=== PATIENT | female | born 1955 | race Caucasian/White ===

== ENCOUNTER → 2020-06-16 | Outpatient (CLI) | payer BC ==
--- NOTE | 2020-06-16 13:38 | Diagnostic Imaging Report ---
CT Lung Screening INDICATION: [id number] smoking history for low-dose baseline screening. TECHNIQUE: Noncontrast, low-dose CT imaging performed according to the lung cancer screening protocol. Auto Exposure Controls were utilize during the CT exam to meet ALARA standards for radiation dose reduction. COMPARISON: Baseline. FINDINGS: Seen best on axial image 144, series 2 and coronal image 62 series 602 is a juxtapleural subcentimeter nodule in the left lower lobe measuring a long axis 7.7 mm x width of 4 mm. It showed no definite calcifications as borders are well-defined and had no peripheral groundglass density. This is favored to be a benign nodule given its morphology, density, and juxtapleural position but given I have no priors for its comparison, a six-month follow-up low-dose CT chest CT recommended. No other lung mass and no spiculated lesion. No evidence for adenopathy. The thoracic aorta is normal in caliber. No effusion, pneumothorax or evidence for pneumonia. Visualized upper abdomen showed previous cholecystectomy but no acute finding. IMPRESSION: Likely benign sub-centimeter subpleural nodule in left lower lobe. Follow-up exam in six months' time recommended. LUNG-RADS CATEGORY: Category 3. MODIFIER: None. OTHER SIGNIFICANT FINDINGS: None. Dictated by: Dictated on workstation # [id number]
== END ==
LOC: RAD 12:45
PROVIDERS: ATTEND Family Medicine
DX: R91.1 Solitary pulmonary nodule (principal); F17.210 Nicotine dependence, cigarettes, uncomplicated
CPT/HCPCS: 71271

== ENCOUNTER → 2020-12-15 | Outpatient (CLI) | payer BC ==
--- NOTE | 2020-12-15 12:28 | Diagnostic Imaging Report ---
CT Lung Screening INDICATION:40 pack year smoking history, current smoker, for 6 month follow-up TECHNIQUE: Noncontrast, low-dose CT imaging performed according to the lung cancer screening protocol. Auto Exposure Controls were utilize during the CT exam to meet ALARA standards for radiation dose reduction. COMPARISON:06/16/2020 FINDINGS:A stable somewhat elongated juxtapleural nodule in the left lower lobe measures about 7 mm and given stability consistent with benign etiology. Unchanged from prior is a tiny 6 mm nodule in the right upper lobe previously it was mistaken for a vascular structure. This also stable and benign. No new dominant or suspicious lung mass. No findings suggestive of active lung cancer. No thoracic adenopathy. The atherosclerotic aorta is nonaneurysmal. There is no pleural or pericardial effusion. The visualized upper abdomen showed no acute or suspicious finding. IMPRESSION: Stable benign subcentimeter nodules. This patient can be returned to routine annual screening next due in 12 months time. LUNG-RADS CATEGORY:Category 2 benign findings as described MODIFIER:None OTHER SIGNIFICANT FINDINGS:None Dictated by: Dictated on workstation # [id number]
== END ==
LOC: RAD 11:33
PROVIDERS: ATTEND Family Medicine
DX: Z12.2 Encounter for screening for malignant neoplasm of respiratory organs (principal); R91.8 Other nonspecific abnormal finding of lung field; F17.210 Nicotine dependence, cigarettes, uncomplicated
CPT/HCPCS: 71271

== ENCOUNTER → 2022-02-03 | Outpatient (CLI) | payer MEDICARE, BC ==
--- NOTE | 2022-02-03 16:41 | Diagnostic Imaging Report ---
EXAMINATION: CT chest without contrast (lung screening). TECHNIQUE: Multiple contiguous axial images were obtained through the chest without the use of intravenous contrast according to lung cancer screening protocol. All CT scans use one or more of the following dose optimizing techniques: automated exposure control, MA and/or KvP adjustment based on patient size and exam type or iterative reconstruction. HISTORY: 30 pack year history of smoking. COMPARISON: 12/15/2020. FINDINGS: Thyroid: The thyroid is normal. Mediastinum: Heart size is normal without significant pericardial effusion. Calcifications of the aorta and coronary vessels. Thoracic aorta is normal in caliber. No suspicious lymphadenopathy. Lungs and airways: The lungs are clear without consolidation, pleural effusion or pneumothorax. Stable bilateral pulmonary nodules measuring up to 0.8 cm the right upper lobe and 0.8 cm in the left lower lobe. No new suspicious pulmonary lesion. There is a calcified granuloma within the left lung. The airways are normal. Upper abdomen: The subphrenic structures are normal. Musculoskeletal: Degenerative changes of the spine without suspicious osseous lesion or compression fracture. IMPRESSION: No new suspicious pulmonary nodules. Stable bilateral pulmonary nodules measuring up to 0.8 cm. Recommend continued annual low-dose CT screening. LUNG-RADS CATEGORY: 2 MODIFIER: None Dictated by: Dictated on workstation # [id number]
== END ==
LOC: RAD 11:21
PROVIDERS: ATTEND Nurse Practitioner
DX: Z12.2 Encounter for screening for malignant neoplasm of respiratory organs (principal); R91.8 Other nonspecific abnormal finding of lung field; F17.210 Nicotine dependence, cigarettes, uncomplicated
CPT/HCPCS: 71271

== ENCOUNTER 2022-10-25 05:42 | Outpatient (CLI) | payer MEDICARE, BC ==
[~2022-10-25] VITALS: Ht 162.6 cm; Wt 95.5 kg
[2022-10-25] MEDS ORDERED: ACET-3075 PO (16:40)
[2022-10-25] MEDS ORDERED: ZOLP10TA PO (16:40)
[2022-10-25] MEDS ORDERED: ERGO400C PO (16:40)
[2022-10-25] MEDS ORDERED: FEXO180T84 PO (16:40)
[2022-10-25] MEDS ORDERED: MONT-40 PO (16:40)
[2022-10-25] MEDS ORDERED: MAGN250C PO (16:40)
[2022-10-25] MEDS ORDERED: ACET-2267 PO (16:40)
[2022-10-25] MEDS ORDERED: LISI1TAB48 PO (16:40)
[2022-10-25] MEDS ORDERED: ASPI325T32 PO (16:40)
[2022-10-25] MEDS ORDERED: ROPI1TAB PO (16:40)
[2022-10-25] MEDS ORDERED: OMEP20CA18 PO (16:40)
[2022-10-25] MEDS ORDERED: ATOR10TA66 PO (16:40)
== END 2022-10-25 16:45 | disposition home or self-care (01) ==
LOC: PREOP 05:42
PROVIDERS: ATTEND Specialist
DX: Z01.818 Encounter for other preprocedural examination (principal)

== ENCOUNTER 2022-10-28 10:33 | Day surgery (SDC) | payer MEDICARE, BC ==
[~2022-10-28] VITALS: Ht 162.6 cm; Wt 95.5 kg
[~2022-10-28 10:33] MED LIST: ACET-2267 PO; ACET-3075 PO; ASPI325T32 PO; ATOR10TA66 PO; ERGO400C PO; FEXO180T84 PO; LISI1TAB48 PO; MAGN250C PO; MONT-40 PO; OMEP20CA18 PO; ROPI1TAB PO; ZOLP10TA PO
[2022-10-28] MEDS: TETRACAINE 0.5% OPHTH SOLN 4 ML BTL (SINGLE DOSE ONLY) OD SCH ×4 (11:41→12:00)
[2022-10-28 11:42] VITALS: BP 124/110
[2022-10-28] MEDS ORDERED: MOXIFLOXACIN OPHTH SOLN 5 MG/ML 0.3 ML SYRINGE OP ONE (11:45)
[2022-10-28] MEDS ORDERED: POVIDONE (BETADINE) OPHTH SOLN 5% 30 ML OP ONE (11:45)
[2022-10-28] MEDS ORDERED: TIMOLOL 0.5% (CATARACTS) 0.3 ML BTL OU PRN (11:45)
[2022-10-28] MEDS: PHENYLEPHRINE 10% OPHTH (NEO-SYN) 5 ML BTL OU SCH ×3 (11:50→12:00)
[2022-10-28] MEDS: TROPICAMIDE 1% OPH SOLN (MYDRIACYL) 15 ML BTL OP SCH ×3 (11:50→12:00)
--- NOTE | 2022-10-28 12:33 | Ophthalmologist Pre-Op Note ---
Pre-Operative Progress Note H&P Reviewed The H&P was reviewed, patient examined and no changes noted. Date H&P Reviewed: Oct 28, 2022 Time H&P Reviewed: 12:33 Pre-Op Dx Cataract, Right Eye AC GLORIA MD Oct 28, 2022 12:33
[2022-10-28] MEDS ORDERED: MIDAZOLAM 2 MG/2 ML (VERSED) VIAL ONE (12:35)
--- NOTE | 2022-10-28 12:53 | Ophthalmology Operative Report ---
Cataract removal/placement IOL PREOPERATIVE DIAGNOSIS: Cataract Right Eye POSTOPERATIVE DIAGNOSIS: Cataract Right Eye PROCEDURE: Cataract removal and placement of posterior chamber implant, right eye SURGEON: Pedro Gloria ANESTHESIA: Topical with sedation COMPLICATIONS: None ESTIMATED BLOOD LOSS: Minimal DESCRIPTION OF PROCEDURE: After proper informed consent was obtained, the patient, a 67 female, was taken to the Operating Room and the right eye was anesthetized with tetracaine. The right eye was then prepped and draped in the usual manner. A wire lid speculum was placed. A paracentesis was made at the left hand position. Preservative free lidocaine was injected into the anterior chamber followed by viscoelastic. A clear corneal incision was made in the temporal position. A capsulorrhexis was preformed and the central nuclear and cortical material were removed. The posterior capsule was polished and Satnam 21.0 AU00T0 IOL was placed into the capsular bag. The residual viscoelastic was aspirated and balanced saline solution was injected into the anterior chamber. Moxifloxacin was injected into the anterior chamber. The wound was checked and found to be water tight. The patient tolerated the procedure well without complications. PEDRO GLORIA MD Oct 28, 2022 12:53
[2022-10-28 12:58] VITALS: BP 98/73
--- NOTE | 2022-10-28 13:37 | Anesthesia-General Post-Op ---
MAC Patient Condition Mental Status/LOC: Same as Preop Cardiovascular: Satisfactory Nausea/Vomiting: Absent Respiratory: Satisfactory Pain: Controlled Complications: Absent Post Op Complications Complications None Follow Up Care/Instructions Patient Instructions None needed. Anesthesiology Discharge Order Discharge Order Patient is doing well, no complaints, stable vital signs, no apparent adverse anesthesia problems. No complications reported per nursing. SISI WEEMS CRNA Oct 28, 2022 13:37
[2022-10-28] MEDS ORDERED: acetaZOLAMIDE ER 500 MG CAP (DIAMOX SEQUELS) PO ONE (14:00)
== END 2022-10-28 13:00 | disposition home or self-care (01) ==
LOC: SDC 10:33
PROVIDERS: ATTEND Specialist
DX: H25.9 Unspecified age-related cataract (principal); F17.210 Nicotine dependence, cigarettes, uncomplicated
CPT/HCPCS: 66984; V2632

== ENCOUNTER → 2022-11-09 | Outpatient (CLI) | payer MEDICARE, BC | END | disposition home or self-care (01) | LOC: PREOP 05:34 | PROVIDERS: ATTEND Specialist | DX: Z01.818 Encounter for other preprocedural examination (principal) ==

== ENCOUNTER 2022-11-11 10:58 | Day surgery (SDC) | payer MEDICARE, BC ==
[~2022-11-11] VITALS: Ht 165.1 cm; Wt 95.5 kg
[2022-11-11] MEDS: TETRACAINE 0.5% OPHTH SOLN 4 ML BTL (SINGLE DOSE ONLY) OU PRN ×4 (11:03→11:19)
[2022-11-11] MEDS: TROPICAMIDE 1% OPH SOLN (MYDRIACYL) 15 ML BTL OP SCH ×3 (11:09→11:19)
[2022-11-11] MEDS: PHENYLEPHRINE 10% OPHTH (NEO-SYN) 5 ML BTL OU SCH ×3 (11:09→11:19)
[2022-11-11 11:11] VITALS: BP 139/73
[2022-11-11] MEDS ORDERED: POVIDONE (BETADINE) OPHTH SOLN 5% 30 ML OP ONE (11:15)
[2022-11-11] MEDS ORDERED: MOXIFLOXACIN OPHTH SOLN 5 MG/ML 0.3 ML SYRINGE OP ONE (11:15)
[2022-11-11] MEDS ORDERED: TIMOLOL 0.5% (CATARACTS) 0.3 ML BTL OU PRN (11:15)
[2022-11-11] MEDS ORDERED: MIDAZOLAM 2 MG/2 ML (VERSED) VIAL ONE (12:04)
--- NOTE | 2022-11-11 12:14 | Ophthalmologist Pre-Op Note ---
Pre-Operative Progress Note H&P Reviewed The H&P was reviewed, patient examined and no changes noted. Date H&P Reviewed: Nov 11, 2022 Time H&P Reviewed: 12:13 Pre-Op Dx Cataract, Left Eye AC GLORIA MD Nov 11, 2022 12:14
--- NOTE | 2022-11-11 12:33 | Ophthalmology Operative Report ---
Cataract removal/placement IOL PREOPERATIVE DIAGNOSIS: Cataract Left Eye POSTOPERATIVE DIAGNOSIS: Cataract Left Eye PROCEDURE: Cataract removal and placement of posterior chamber implant, left eye SURGEON: Pedro Gloria ANESTHESIA: Topical with sedation COMPLICATIONS: None ESTIMATED BLOOD LOSS: Minimal DESCRIPTION OF PROCEDURE: After proper informed consent was obtained, the patient, a 67 female, was taken to the Operating Room and the left eye was anesthetized with tetracaine. The left eye was then prepped and draped in the usual manner. A wire lid speculum was placed. A paracentesis was made at the left hand position. Preservative free lidocaine was injected into the anterior chamber followed by viscoelastic. A clear corneal incision was made in the temporal position. A capsulorrhexis was preformed and the central nuclear and cortical material were removed. The posterior capsule was polished and an Satnam 21.5 AU00T0 was placed into the capsular bag. The residual viscoelastic was aspirated and balanced saline solution was injected into the anterior chamber. Moxifloxacin was injected into the anterior chamber. The wound was checked and found to be water tight. The patient tolerated the procedure well without complications. PEDRO GLORIA MD Nov 11, 2022 12:33
[2022-11-11 12:37] VITALS: BP 137/71
--- NOTE | 2022-11-11 13:48 | Anesthesia-General Post-Op ---
MAC Patient Condition Mental Status/LOC: Same as Preop Cardiovascular: Satisfactory Nausea/Vomiting: Absent Respiratory: Satisfactory Pain: Controlled Complications: Absent Post Op Complications Complications None Follow Up Care/Instructions Patient Instructions None needed. Anesthesiology Discharge Order Discharge Order Patient was doing well after the procedure with no complaints, stable vital signs, no apparent adverse anesthesia problems. No complications reported per nursing. AGUILA BURGESS 16, 2023 13:48
[2022-11-11] MEDS ORDERED: acetaZOLAMIDE ER 500 MG CAP (DIAMOX SEQUELS) PO ONE (14:00)
== END 2022-11-11 12:38 | disposition home or self-care (01) ==
LOC: SDC 10:58
PROVIDERS: ATTEND Specialist
DX: H25.9 Unspecified age-related cataract (principal); F17.200 Nicotine dependence, unspecified, uncomplicated
CPT/HCPCS: 66984; V2632